=== PATIENT | female | born 1965 | race Caucasian/White ===

== ENCOUNTER 2018-01-16 12:44 | Emergency (ER) | payer OTHER ==
[~2018-01-16] VITALS: Ht 167.6 cm; Wt 113.4 kg
[~2018-01-16 12:44] MED LIST: ATOR80TA26 PO; CHOL400C8 PO; CIPR-262 PO; HYDR12.5 PO; IBUP-1955 PO; METH-33 PO; MIRT30TA PO; MORP30CA17 PO; MORP30TA PO; TRAZ-214 PO
[2018-01-16 13:46] VITALS: BP 118/92
--- NOTE | 2018-01-16 13:48 | NUR ---
orthopedic boots applied to right lower extremity. exit care plus prescription given.
== END 2018-01-16 13:47 | disposition home or self-care (01) ==
LOC: ER 12:44
DX: S82.891A Other fracture of right lower leg, initial encounter for closed fracture (principal); G89.29 Other chronic pain; M54.9 Dorsalgia, unspecified; F17.200 Nicotine dependence, unspecified, uncomplicated; F12.10 Cannabis abuse, uncomplicated; Z88.1 Allergy status to other antibiotic agents; Z88.8 Allergy status to other drugs, medicaments and biological substances; Z79.1 Long term (current) use of non-steroidal anti-inflammatories (NSAID); Z79.891 Long term (current) use of opiate analgesic; Z79.2 Long term (current) use of antibiotics; Z79.899 Other long term (current) drug therapy; X50.1XXA Overexertion from prolonged static or awkward postures, initial encounter; Y93.89 Activity, other specified; Y92.89 Other specified places as the place of occurrence of the external cause; Y99.8 Other external cause status
CPT/HCPCS: 73610; A4663

== ENCOUNTER 2018-01-24 13:52 | Emergency (ER) | payer OTHER ==
[~2018-01-24] VITALS: Ht 167.6 cm; Wt 113.4 kg
[2018-01-24] MEDS ORDERED: TAMS0.4C34 PO (14:55)
[2018-01-24] MEDS ORDERED: DULO60CA45 PO (14:55)
[2018-01-24] MEDS ORDERED: ASPI81TA31 PO (14:55)
[2018-01-24] MEDS ORDERED: DICL100G16 TP (14:55)
[2018-01-24] MEDS ORDERED: DOCU100C36 PO (14:55)
[2018-01-24] MEDS ORDERED: PANT40TA4 PO (14:55)
[2018-01-24] MEDS ORDERED: TRAZ-182 PO (14:55)
[2018-01-24] MEDS ORDERED: DIVA-78 PO (14:55)
--- NOTE | 2018-01-24 14:57 | NUR ---
PATIENT WAS MSE BY DR VIRAMONTES IN ROOM 03A.
[2018-01-24 15:14] VITALS: BP 126/87
--- NOTE | 2018-01-24 15:15 | NUR ---
Patient discharged to home in stable conditon. Written and verbal after care instructions given. Patient verbalizes understanding of instructions.
== END 2018-01-24 15:15 | disposition home or self-care (01) ==
LOC: ER 13:52
DX: S92.251D Displaced fracture of navicular [scaphoid] of right foot, subsequent encounter for fracture with routine healing (principal); G89.29 Other chronic pain; M54.9 Dorsalgia, unspecified; F17.200 Nicotine dependence, unspecified, uncomplicated; F12.10 Cannabis abuse, uncomplicated; Z88.5 Allergy status to narcotic agent; Z88.8 Allergy status to other drugs, medicaments and biological substances; Z79.1 Long term (current) use of non-steroidal anti-inflammatories (NSAID); Z79.2 Long term (current) use of antibiotics; Z79.899 Other long term (current) drug therapy; X58.XXXD Exposure to other specified factors, subsequent encounter
CPT/HCPCS: A4663

== ENCOUNTER 2019-12-17 12:19 | Emergency (ER) | payer OTHER ==
[~2019-12-17] VITALS: Ht 167.6 cm; Wt 113.4 kg
--- NOTE | 2019-12-17 12:46 | NUR ---
Patient discharged to home in stable condition. Written and verbal after care instructions given. Patient verbalizes understanding of instructions. Stressed follow up or return to ER for worsening s/s.
== END 2019-12-17 12:47 | disposition home or self-care (01) ==
LOC: ER 12:19
DX: Z76.0 Encounter for issue of repeat prescription (principal); G89.29 Other chronic pain; M54.9 Dorsalgia, unspecified; M25.579 Pain in unspecified ankle and joints of unspecified foot; Z98.1 Arthrodesis status
CPT/HCPCS: A4663